=== PATIENT | female | born 1990 | race Caucasian/White ===

== ENCOUNTER 2016-10-08 16:27 | Emergency (ER) | payer BC, OTHER | END 2016-10-08 17:15 | disposition home or self-care (01) | LOC: ER 16:27 | DX: S82.832A Other fracture of upper and lower end of left fibula, initial encounter for closed fracture (principal); Z88.5 Allergy status to narcotic agent; X58.XXXA Exposure to other specified factors, initial encounter | CPT/HCPCS: 73590-LT; 73610-LT; 73630-LT; 96372; 99284; J1885 ==